=== PATIENT | female | born 1975 | race Caucasian/White ===

== ENCOUNTER → 2017-03-24 | Day surgery (SDC) | payer OTHER ==
[~2017-03-24] VITALS: Ht 165.1 cm; Wt 88.9 kg
[~2017-03-24] MED LIST: MYRBETRIQ25 M1 PO; PANTOPRAZOLE SO40 M1 PO; PROBIOTIC250 MG PO
--- NOTE | 2017-03-24 11:13 | Operative Report ---
Operative/Inv Procedure Report Surgery Date: 03/24/17 Name of Procedure: Laparoscopic cholecystectomy Pre-Operative Diagnosis: biliary colic Post-Operative Diagnosis: Same Estimated Blood Loss: scant Surgeon/Department Manager: Mihai DHILLON,Ceasar Valle/Ignacia VALLADARES Anesthesia: general endotracheal tube Specimens: gallbladder Operative/Procedure Note Note: After informed consent patient is brought to the operating room and laid supine. General anesthesia was obtained and her abdomen was prepped and draped. The skin above the umbilicus infiltrated with local anesthesia and a curvilinear incision made sharply. We came down through the subcutaneous tissues bluntly and grasped the fascia with [place]'s. A fasciotomy was created sharply and stay sutures placed. The peritoneum was entered sharply and a blunt Patel port was placed. Pneumoperitoneum was achieved. 3, 5 mm ports were placed in the epigastrium and right upper quadrant after local anesthesia was instilled and under direct vision the camera. She's placed in reverse Trendelenburg and rotated towards the left. The gallbladder is identified. It was grasped at the dome and retracted towards the head. Infundibulum was then grasped. Adhesions to the undersurface were taken down with blunt and cautery dissection. We dissected both sides the triangle [place] peritoneal tissue with cautery. The artery was medial and its normal anatomic position. It was cauterized medially to allow it to be mobilized away from the duct. [place] was cleared of areolar tissue with cautery. The arteries and duct were doubly ligated with clips. Gallbladder is removed from the fossa electrocautery. It was placed in Endo Catch bag and cinched up. Right upper quadrant was and suction irrigated normal saline. Hemostasis achieved with cautery. The ports were then removed and the gallbladder delivered and passed off the field. The fascia was closed with 0 Vicryl suture. Skin incisions closed with 4-0 Vicryl. Steri-Strips and sterile dressing applied. Sponge and needle counts are correct. CC: Lex Cordero DO
== END ==
LOC: STS 02:21
DX: K80.10 Calculus of gallbladder with chronic cholecystitis without obstruction (principal); K21.9 Gastro-esophageal reflux disease without esophagitis; E66.9 Obesity, unspecified; Z68.33 Body mass index [BMI] 33.0-33.9, adult
CPT/HCPCS: 81025; J0131; J0690; J1100; J2250; J2405

== ENCOUNTER 2017-04-06 14:10 | Emergency (ER) | payer OTHER ==
[~2017-04-06] VITALS: Ht 165.1 cm; Wt 87.1 kg
--- NOTE | 2017-04-06 15:02 | ED GI/GU/ABDOMINAL COMPLAINT ---
History of Present Illness General Chief Complaint: General Adult Stated Complaint: SIB MD BENNETT FOR LOWER ABD PAIN Source: patient, old records Exam Limitations: no limitations Vital Signs & Intake/Output Vital Signs & Intake/Output Vital Signs Date Time Temp Pulse Resp B/P B/P Pulse O2 O2 Flow FiO2 Mean Ox Delivery Rate 04/06 1840 98 04/06 1835 98.4 88 52 147/85 99 Room Air 04/06 1623 98.4 86 18 139/83 98 Room Air 04/06 1414 98.8 116 20 139/85 97 Room Air Allergies Coded Allergies: dicyclomine (itch 03/23/17) Reconcile Medications Ibuprofen 800 MG TABLET 1 TAB PO TID PRN pain Mirabegron (Myrbetriq) 25 MG TAB.ER.24H 1 TAB PO DAILY BLADDER (Reported) Pantoprazole Sodium 40 MG TABLET.DR 1 TAB PO BID GI (Reported) Saccharomyces Boulardii (Probiotic) (Unknown Strength) CAPSULE (Unknown Dose) PO DAILY PROBIOTIC (Reported) Triage Note: PT TO ED C/O LOWER ABD PAIN. PT IS S/P [facility] 2 WEEKS AGO HERE BY DR BENNETT. WENT TO SEE HIM FOR F/U TODAY AND HE TOLD HER TO COME HERE FOR EVAL OF LOWER ABD PAIN. DENIES N/V/D. DENIES S/S. Triage Nurses Notes Reviewed? yes LMP (ages 10-50): unknown ? n Is pt currently ? No Onset: Abrupt Duration: day(s): (4), constant, continues in ED Timing: single episode today Quality/Severity: sharpness Severity Numbers: 6 Location: right lower quadrant Radiation: no radiation Activities at Onset: none Prior Abdominal Problems: none Past Sexual History: Unobtainable at this time No Modifying Factors: none Modifying Factors: Worsens With: movement, palpation. Associated Symptoms: abdominal pain HPI: 41-year-old female with no past medical history currently 2 weeks status post laparoscopic cholecystectomy since for evaluation of pain in her right lower quadrant. Patient states that about 4 days ago she noticed the pain in her right lower quadrant. Described as sharp stabbing pain does not radiate. 6 out of 10. Not taking any medicine for this. She states that initially after the surgery she had pain in the right upper quadrant that resolved with time and then this pain started. She notes that she has not had a normal bowel movement since after the surgery. She states that she's been having diarrhea since the surgery but has not had a bowel movement in 4 days now. No bright red blood per rectum. She also reports that she's been taking a lot of laxatives since the surgery. She also tried taking an enema yesterday to help with the pain but it did not help. She saw Dr. Bennett today as part of her postop follow-up and he instructed her to come in here for further evaluation. She denies any fever chills chest pain shortness of breath hemoptysis lower extremity edema or any other associated symptoms. Past History Travel History Traveled to [place] past 21 day No Medical History Any Pertinent Medical History? see below for history Gastrointestinal: GERD Surgical History Surgical History: cholecystectomy Psychosocial History Tobacco Use: Quit >30 days ago ETOH Use: denies use Illicit Drug Use: denies illicit drug use Family History Hx Contributory? No Review of Systems Review of Systems Constitutional: Reports: no symptoms. EENTM: Reports: no symptoms. Respiratory: Reports: no symptoms. Cardiovascular: Reports: no symptoms. GI: Reports: see HPI, abdominal pain, diarrhea. Genitourinary: Reports: no symptoms. Musculoskeletal: Reports: no symptoms. Skin: Reports: no symptoms. Neurological/Psychological: Reports: no symptoms. Hematologic/Endocrine: Reports: no symptoms. Immunologic/Allergic: Reports: no symptoms. All Other Systems: Reviewed and Negative Physical Exam Physical Exam General Appearance: well developed/nourished, no apparent distress, alert, awake Head: atraumatic, normal appearance Eyes: Bilateral: normal appearance, PERRL, EOMI. Ears, Nose, Throat, Mouth: hearing grossly normal, moist mucous membrane Neck: normal inspection, supple, full range of motion Respiratory: normal breath sounds, chest non-tender, no respiratory distress, lungs clear Cardiovascular: regular rate/rhythm, normal peripheral pulses Peripheral Pulses: 2+ radial (R), 2+ radial (L) Gastrointestinal: normal bowel sounds, soft, no organomegaly, rlq and suprapubic , postive rosvings Back: normal inspection, normal range of motion, no vertebral tenderness, no cvat Extremities: normal range of motion, no edema Neurologic/Psych: no motor/sensory deficits, awake, alert, oriented x 3, normal gait, normal mood/affect Skin: intact, normal color, warm/dry Core Measures ACS in differential dx? No Sepsis Present: No Sepsis Focused Exam Completed? No Progress Differential Diagnosis: appendicitis, biliary colic, bowel obstruction, diverticulitis, gastritis, ischemic bowel, inflamm bowel dis, intrauterine , kidney stone, ovarian cyst, pancreatitis, SBO, UTI/pyelo Plan of Care: Orders Procedure Date/time Status Add-on Test (ER Only) 04/06 1512 Active URINALYSIS 04/06 1436 Complete LIPASE 04/06 1436 Complete HUMAN BETA HCG SCREEN 04/06 143 Complete C-REACTIVE PROTEIN 04/06 1436 Complete COMPREHENSIVE METABOLIC PANEL 04/06 143 Complete CBC WITHOUT DIFFERENTIAL 04/06 143 Complete Laboratory Tests 04/06/17 1643: Urine Color YEL, Urine Clarity CLEAR, Urine pH 6.0, Ur Specific [place] 1.025, Urine Protein NEG, Urine Ketones NEG, Urine Nitrite NEG, Urine Bilirubin NEG, Urine Urobilinogen 0.2, Ur Leukocyte Esterase NEG, Ur Microscopic EXAM NOT REQUIRED, Urine Hemoglobin NEG, Urine Glucose NEG 04/06/17 1510: Anion Gap 19 H, Estimated GFR > 60, BUN/Creatinine Ratio 18.6, Glucose 80, Calcium 10.0, Total Bilirubin 0.7, AST 22, ALT 29, Alkaline Phosphatase 143 H, C-Reactive Prot, Quant 2.9 H, Total Protein 8.5 H, Albumin 4.8, Globulin 3.7, Albumin/Globulin Ratio 1.3, Lipase 58, Total Beta HCG NEGATIVE, CBC w Diff NO MAN DIFF REQ, RBC 4.69, MCV 87.7, MCH 28.5, MCHC 32.5 L, RDW 12.9, MPV 7.8, Gran % 71.6, Lymphocytes % 20.7, Monocytes % 5.7, Eosinophils % 1.5, Basophils % 0.5, Absolute Granulocytes 9.0 H, Absolute Lymphocytes 2.6, Absolute Monocytes 0.7 H, Absolute Eosinophils 0.2, Absolute Basophils 0.1 Patient seen and evaluated. She was sent in by Dr. Bennett for evaluation of right lower quadrant pain. She had a laparoscopic cystectomy 2 weeks ago. No chest pain shortness breath or hemoptysis. She currently is mildly tachycardic and has tenderness in the right lower quadrant. Appendicitis needs to be ruled out. Patient will be given IV Tylenol and a liter of normal saline. Will check basic labs and a contrast CT scan. CT scan is negative. Labs show a mildly elevated white blood cell count. Patient is feeling better after IV Tylenol. Case discussed with Dr. Bennett he recommends discharge continue Tylenol and Robitussin as needed follow-up with primary care doctor and Dr. Bennett as needed. Discussed return precautions. Patient is nontoxic-appearing increased Diagnostic Imaging: Viewed by Me: CT Scan. Discussed w/RAD: CT Scan. Radiology Impression: PATIENT: WALT CHAUDHARI PRESENT AGE: 41 PATIENT ACCOUNT NO: [id number] : 76 LOCATION: [facility] ORDERING PHYSICIAN: Kevin VALLADARES SERVICE DATE: 04/06/17 EXAM TYPE: CAT - CT ABD & PELVIS W IV CONTRAST EXAMINATION: CT ABDOMEN AND PELVIS WITH CONTRAST CLINICAL INFORMATION: Right lower quadrant abdominal pain for 2 weeks. Status post laparoscopic cholecystectomy. COMPARISON: MR abdomen 02/25/2017. Ultrasound abdomen 02/17/2017. TECHNIQUE: Multidetector volumetric imaging was performed of the abdomen and pelvis following IV administration of 95 mL of Optiray 320 intravenous contrast. Sagittal and coronal reformatted images were obtained on the technologist's workstation. DLP: 550.01 mGy-cm FINDINGS: LUNG BASES: The visualized lung bases are unremarkable. LIVER, GALLBLADDER, AND BILIARY TREE: Diffuse low attenuation of liver parenchyma due to fatty change. No focal liver lesion. Status post cholecystectomy. No bile duct dilatation. PANCREAS: Unremarkable. SPLEEN: Unremarkable. ADRENAL GLANDS: Unremarkable. KIDNEYS AND URETERS: The kidneys are normal in size, shape, and attenuation. No hydronephrosis, hydroureter, or calculi seen. No perinephric stranding. BLADDER: Unremarkable. GASTROINTESTINAL TRACT: The small and large bowel are unremarkable. The appendix is unremarkable. MESENTERY: No abscess. No free air. No free fluid. No evidence of a biloma in the right upper quadrant. ABDOMINAL WALL: Small fat-containing umbilical hernia. LYMPH NODES: Normal. VASCULAR: Unremarkable. PELVIC VISCERA: Left ovarian follicle/cyst measuring 2.5 cm. Density measurement is 34 Hounsfield units. Small amount of fluid in the cul-de- sac. OSSEOUS STRUCTURES: Minor degenerative spurring at the endplates of the thoracic and lumbar vertebrae. IMPRESSION: No acute abnormality CT scan abdomen and pelvis. Status post cholecystectomy. No inflammation or abscess. DICTATED BY : Sean Marte MD DATE/TIME DICTATED:04/06/171740 PLUMBER APPRENTICE:SIMMONS DATE/TIME TRANSCRIBED:04/06/171740 CONFIDENTIAL, DO NOT COPY WITHOUT APPROPRIATE AUTHORIZATION., PATIENT: WALT CHAUDHARI PRESENT AGE: 41 PATIENT ACCOUNT NO: [id number] : 76 LOCATION: [facility] ORDERING PHYSICIAN: Kevin VALLADARES SERVICE DATE: 04/06/17 EXAM TYPE: CAT - CT ABD & PELVIS W IV CONTRAST EXAMINATION: CT ABDOMEN AND PELVIS WITH CONTRAST CLINICAL INFORMATION: Right lower quadrant abdominal pain for 2 weeks. Status post laparoscopic cholecystectomy. COMPARISON: MR abdomen 02/25/2017. Ultrasound abdomen 02/17/2017. TECHNIQUE: Multidetector volumetric imaging was performed of the abdomen and pelvis following IV administration of 95 mL of Optiray 320 intravenous contrast. Sagittal and coronal reformatted images were obtained on the technologist's workstation. DLP: 550.01 mGy-cm FINDINGS: LUNG BASES: The visualized lung bases are unremarkable. LIVER, GALLBLADDER, AND BILIARY TREE: Diffuse low attenuation of liver parenchyma due to fatty change. No focal liver lesion. Status post cholecystectomy. No bile duct dilatation. PANCREAS: Unremarkable. SPLEEN: Unremarkable. ADRENAL GLANDS: Unremarkable. KIDNEYS AND URETERS: The kidneys are normal in size, shape, and attenuation. No hydronephrosis, hydroureter, or calculi seen. No perinephric stranding. BLADDER: Unremarkable. GASTROINTESTINAL TRACT: The small and large bowel are unremarkable. The appendix is unremarkable. MESENTERY: No abscess. No free air. No free fluid. No evidence of a biloma in the right upper quadrant. ABDOMINAL WALL: Small fat-containing umbilical hernia. LYMPH NODES: Normal. VASCULAR: Unremarkable. PELVIC VISCERA: Left ovarian follicle/cyst measuring 2.5 cm. Density measurement is 34 Hounsfield units. Small amount of fluid in the cul-de- sac. OSSEOUS STRUCTURES: Minor degenerative spurring at the endplates of the thoracic and lumbar vertebrae. IMPRESSION: No acute abnormality CT scan abdomen and pelvis. Status post cholecystectomy. No inflammation or abscess. DICTATED BY : Sean Marte MD DATE/TIME DICTATED:04/06/171740 PLUMBER APPRENTICE:SIMMONS DATE/TIME TRANSCRIBED:04/06/171740 CONFIDENTIAL, DO NOT COPY WITHOUT APPROPRIATE AUTHORIZATION. Initial ED EKG: none Departure Departure Disposition: HOME OR SELF CARE Condition: Stable Clinical Impression Primary Impression: Abdominal pain Qualifiers: Abdominal location: right lower quadrant Qualified Code: R10.31 - Right lower quadrant pain Referrals: Mihai DHILLON,Lex White DO (PCP/Family) Additional Instructions: Rest and drink plenty of fluids. Use ibuprofen 800 mg every 8 hours with food as needed for pain. Make a follow-up with her primary care doctor and Dr. Bennett as soon as possible. Monitor symptoms return with any concerns. Departure Forms: Customer Survey General Discharge Information Prescriptions: Current Visit Scripts Ibuprofen 1 TAB PO TID PRN pain #30 TAB
[2017-04-06 16:16] LABS: ABSOLUTE BASOPHIL COUNT 0.1 /CUMM (0.0-0.2); ABSOLUTE EOSINOPHIL COUNT 0.2 /CUMM (0.0-0.7); ABSOLUTE LYMPH COUNT 2.6 /CUMM (1.2-3.4); ABSOLUTE MONOCYTE COUNT 0.7 /CUMM (0.10-0.60); BASOPHIL % 0.5 % (0.0-2.0); EOSINOPHIL % 1.5 % (0-5); GRANULOCYTE % 71.6 % (42.2-75.2); HEMATOCRIT 41.1 % (37-47); MEAN CORPUSCULAR HGB 28.5 PG (27.0-31.0); MEAN CORPUSCULAR HGB CONC 32.5 G/DL (33.0-37.0); MEAN CORPUSCULAR VOLUME 87.7 FL (81.0-99.0); MEAN PLATELET VOLUME 7.8 FL (7.4-10.4); PLATELET COUNT 494 /CUMM (130-400); RBC DISTRIBUTION WIDTH 12.9 % (11.5-14.5); RED BLOOD CELL CT 4.69 /CUMM (4.20-5.40); WHITE BLOOD CELL COUNT 12.5 /CUMM (4.8-10.8)
--- NOTE | 2017-04-06 17:57 | CT SCAN REPORT ---
EXAMINATION: CT ABDOMEN AND PELVIS WITH CONTRAST CLINICAL INFORMATION: Right lower quadrant abdominal pain for 2 weeks. Status post laparoscopic cholecystectomy. COMPARISON: MR abdomen 02/25/2017. Ultrasound abdomen 02/17/2017. TECHNIQUE: Multidetector volumetric imaging was performed of the abdomen and pelvis following IV administration of 95 mL of Optiray 320 intravenous contrast. Sagittal and coronal reformatted images were obtained on the technologist's workstation. DLP: 550.01 mGy-cm FINDINGS: LUNG BASES: The visualized lung bases are unremarkable. LIVER, GALLBLADDER, AND BILIARY TREE: Diffuse low attenuation of liver parenchyma due to fatty change. No focal liver lesion. Status post cholecystectomy. No bile duct dilatation. PANCREAS: Unremarkable. SPLEEN: Unremarkable. ADRENAL GLANDS: Unremarkable. KIDNEYS AND URETERS: The kidneys are normal in size, shape, and attenuation. No hydronephrosis, hydroureter, or calculi seen. No perinephric stranding. BLADDER: Unremarkable. GASTROINTESTINAL TRACT: The small and large bowel are unremarkable. The appendix is unremarkable. MESENTERY: No abscess. No free air. No free fluid. No evidence of a biloma in the right upper quadrant. ABDOMINAL WALL: Small fat-containing umbilical hernia. LYMPH NODES: Normal. VASCULAR: Unremarkable. PELVIC VISCERA: Left ovarian follicle/cyst measuring 2.5 cm. Density measurement is 34 Hounsfield units. Small amount of fluid in the cul-de-sac. OSSEOUS STRUCTURES: Minor degenerative spurring at the endplates of the thoracic and lumbar vertebrae. IMPRESSION: No acute abnormality CT scan abdomen and pelvis. Status post cholecystectomy. No inflammation or abscess.
[2017-04-06] MEDS ORDERED: IBUPROFEN800 M1 PO (18:32)
[2017-04-06 18:35] VITALS: BP 147/85
== END 2017-04-06 18:41 ==
LOC: ERH 14:10
PROVIDERS: Physician Assistant Medical
DX: R10.31 Right lower quadrant pain (principal)
CPT/HCPCS: 74177; 81003; 81025; 96374; J0131